=== PATIENT | female | born 1930 | race American Indian/Alaskan Native ===

== ENCOUNTER 2017-03-25 11:24 | Inpatient (IN) | payer MEDICARE, OTHER ==
[2017-03-25 11:37] VITALS: BMI 23.2
[2017-03-25] MEDS ORDERED: Sodium Chloride 0.9% 500 ML IV STA (12:26)
--- NOTE | 2017-03-25 12:43 | C.PDOC ---
History Of Present Illness 86 y/o female presents to the ED with complains of pain to right rib and left hip area. Pt normally walks with a walker, states she went to the bathroom sometime last night and left the walker outside the bathroom door. She fell in the bathroom and couldn't get up; patient does not remember how she fell. Pt then crawled to her front door and called out for her neighbor who got home and found the patient around 2130, helped patient to her bed. Pt woke up this morning with pain to right rib and left hip. Denies chest pain, SOB, vomiting, headache, neck pain, back pain or any other complaints. Neighbor and daughter at bedside. - HPI Time Seen by Provider: 03/25/17 11:46 Chief Complaint (Nursing): Rib Injury History Per: Patient History/Exam Limitations: no limitations Onset/Duration Of Symptoms: Hrs Severity: Moderate Recent travel outside of the [place]: No Past Medical History Reviewed: Historical Data, Nursing Documentation, Vital Signs Vital Signs: Last Vital Signs Temp 97.5 F L 03/25/17 11:37 Pulse 80 03/25/17 11:37 Resp 18 03/25/17 11:37 BP 166/87 H 03/25/17 11:37 Pulse Ox 97 03/25/17 16:48 - Medical History PMH: Dementia, HTN, Hypercholesterolemia, Hyperlipidemia Surgical History: Appendectomy, Tonsillectomy Family History: States: Unknown Family Hx - Social History Hx Alcohol Use: No Hx Substance Use: No - Immunization History Hx Tetanus Toxoid Vaccination: No Hx Influenza Vaccination: No Hx Pneumococcal Vaccination: No Review Of Systems Except As Marked, All Systems Reviewed And Found Negative. Cardiovascular: Negative for: Chest Pain Respiratory: Negative for: Shortness of Breath Gastrointestinal: Negative for: Vomiting Musculoskeletal: Positive for: Other (right rib pain, left hip pain). Negative for: Neck Pain, Back Pain Neurological: Negative for: Headache Physical Exam - Physical Exam Appears: Non-toxic, No Acute Distress Skin: Warm, Dry, No Rash Head: Atraumatic, Normacephalic Eye(s): bilateral: PERRL, EOMI Nose: Normal Neck: Normal, Normal ROM, No Midline Cervical Tenderness, Supple Chest: Symmetrical, Tenderness (diffuse right rib tenderness) Cardiovascular: Rhythm Regular, No Murmur Respiratory: Normal Breath Sounds, No Rales, No Rhonchi, No Wheezing Gastrointestinal/Abdominal: Normal Exam, Soft, No Tenderness Back: Normal Inspection, No Vertebral Tenderness Extremity: Normal ROM, Tenderness (left hip), Capillary Refill (<2 seconds), No Deformity Extremity: Bilateral: Atraumatic Neurological/Psych: Oriented x3, Normal Speech, Normal Motor, Normal Sensation ED Course And Treatment - Laboratory Results Result Diagrams: 03/25/17 15:28 03/25/17 15:28 O2 Sat by Pulse Oximetry: 97 (room air) Pulse Ox Interpretation: Normal - CT Scan/US CT head Other Rad Studies (CT/US): Read By Radiologist, Radiology Report Reviewed CT/US Interpretation: Accession No. : [id number]. Patient Name / ID : DENNY BELL / [id number]. Exam Date : 03/25/2017 13:49:36 ( Approved ). Study Comment : Sex / Age : F / 86Y. Creator : Jason Gaxiola MD. Dictator : Jason Gaxiola MD. Station Usher : Spectrograph Operator : Jason Gaxiola MD. Approver2 : Report Date : 03/25/2017 15:01:10. My Comment : . PROCEDURE: CT HEAD WITHOUT CONTRAST. HISTORY: fall. COMPARISON: None available. TECHNIQUE: Axial computed tomography images were obtained through the head/brain without intravenous contrast. Radiation dose: Total exam DLP = 667 mGy-cm. This CT exam was performed using one or more of the following dose reduction techniques: Automated exposure control, adjustment of the mA and/or kV according to patient size, and/or use of iterative reconstruction technique. FINDINGS: HEMORRHAGE: No intracranial hemorrhage. BRAIN: No mass effect or edema. Chronic microvascular ischemic changes. VENTRICLES: Unremarkable. No hydrocephalus. CALVARIUM: Unremarkable. PARANASAL SINUSES: Unremarkable as visualized. No significant inflammatory changes. MASTOID AIR CELLS: Unremarkable as visualized. No inflammatory changes. OTHER FINDINGS: None. IMPRESSION: No acute hemorrhage. CT chest Other Rad Studies (CT/US): Read By Radiologist, Radiology Report Reviewed CT/US Interpretation: Accession No. : [id number]. Patient Name / ID : DENNY BELL / [id number]. Exam Date : 03/25/2017 13:56:45 ( Approved ). Study Comment : Sex / Age : F / 86Y. Creator : Jason Gaxiola MD. Dictator : Jason Gaxiola MD. Station Usher : Spectrograph Operator : Jason Gaxiola MD. Approver2 : Report Date : 03/25/2017 15:14:07. My Comment : . PROCEDURE: CT Chest without contrast. HISTORY: fall, right ribs pain. COMPARISON: None. TECHNIQUE: Contiguous axial images were obtained through the chest without intravenous contrast enhancement. Sagittal and coronal reconstructions were performed. . Radiation dose (DLP): 402 mGy-cm. This CT exam was performed using one or more of the following dose reduction techniques : Automated exposure control, adjustment of the mA and/or kV according to patient size, and/or use of iterative reconstruction technique. FINDINGS: LUNGS: Clear lungs. Visualized airway clear. MEDIASTINUM: Unremarkable thoracic aorta. No aneurysm. Normal sized heart. Main pulmonary artery unremarkable. No vascular congestion. No lymphadenopathy. PLEURA: No pleural fluid. No pneumothorax. BONES: No fracture. No destructive lesion. UPPER ABDOMEN: Grossly unremarkable. OTHER FINDINGS: Enlarged bilateral axillary lymph nodes; correlate clinically. IMPRESSION: Bilateral axillary lymphadenopathy; correlate clinically. No evidence of rib fracture. Progress Note: Patient was tx with Morphine IV with some improvement. patient is still unable to ambulate secondary to the pain. Patient lives alone, no home care. Daughter has disability and can't physically help. Patient will be observed in [place], she will need social science research assistant to help her with home care. Case was d/w who admits for pt's PMD . Patient was accepted for observation. Medical Decision Making Medical Decision Making: Plan: CT chest/head, labs, UA, morphine, IV Fluids Disposition - Disposition Disposition: HOSPITALIZED Disposition Time: 16:47 Condition: FAIR - Clinical Impression Clinical Impression: Unsteady gait, Fall, Multiple contusions - PA / [employer] INTEGRATION ENGINEER / Resident Statement MD/DO has reviewed & agrees with the documentation as recorded. - Scribe Statement The provider has reviewed the documentation as recorded by the Sejalibjanet Stevens All medical record entries made by the Micheal were at my direction and personally dictated by me. I have reviewed the chart and agree that the record accurately reflects my personal performance of the history, physical exam, medical decision making, and the department course for this patient. I have also personally directed, reviewed, and agree with the discharge instructions and disposition.
[2017-03-25] MEDS ORDERED: Sodium Chloride 0.9% 500 ML IV ONE (13:35)
--- NOTE | 2017-03-25 15:03 | CT ---
PROCEDURE: CT HEAD WITHOUT CONTRAST. HISTORY: fall COMPARISON: None available. TECHNIQUE: Axial computed tomography images were obtained through the head/brain without intravenous contrast. Radiation dose: Total exam DLP = 667 mGy-cm. This CT exam was performed using one or more of the following dose reduction techniques: Automated exposure control, adjustment of the mA and/or kV according to patient size, and/or use of iterative reconstruction technique. FINDINGS: HEMORRHAGE: No intracranial hemorrhage. BRAIN: No mass effect or edema. Chronic microvascular ischemic changes. VENTRICLES: Unremarkable. No hydrocephalus. CALVARIUM: Unremarkable. PARANASAL SINUSES: Unremarkable as visualized. No significant inflammatory changes. MASTOID AIR CELLS: Unremarkable as visualized. No inflammatory changes. OTHER FINDINGS: None. IMPRESSION: No acute hemorrhage.
--- NOTE | 2017-03-25 15:15 | CT ---
PROCEDURE: CT Chest without contrast HISTORY: fall, right ribs pain COMPARISON: None. TECHNIQUE: Contiguous axial images were obtained through the chest without intravenous contrast enhancement. Sagittal and coronal reconstructions were performed. Radiation dose (DLP): 402 mGy-cm. This CT exam was performed using one or more of the following dose reduction techniques: Automated exposure control, adjustment of the mA and/or kV according to patient size, and/or use of iterative reconstruction technique. FINDINGS: LUNGS: Clear lungs. Visualized airway clear. MEDIASTINUM: Unremarkable thoracic aorta. No aneurysm. Normal sized heart. Main pulmonary artery unremarkable. No vascular congestion. No lymphadenopathy. PLEURA: No pleural fluid. No pneumothorax. BONES: No fracture. No destructive lesion. UPPER ABDOMEN: Grossly unremarkable. OTHER FINDINGS: Enlarged bilateral axillary lymph nodes; correlate clinically. IMPRESSION: Bilateral axillary lymphadenopathy; correlate clinically. No evidence of rib fracture.
[2017-03-25 15:32] LABS: BASO % 0.2 % (0.0-2.0); EOS # 0.1 K/uL (0.0-0.7); EOS % 0.5 % (0.0-4.0); HEMATOCRIT 34.8 % (34.0-47.0); LYMPH # 1.3 K/uL (1.0-4.3); MEAN CELL VOLUME 93.7 fL (81.0-99.0); MEAN CORPUSCULAR HEMOGLOBIN 30.7 pg (27.0-31.0); MEAN CORPUSCULAR HGB CONC 32.8 g/dL (33.0-37.0); MEAN PLATELET VOLUME 7.8 fL (7.2-11.7); MONO # 0.7 K/uL (0.0-0.8); MONO % 6.9 % (0.0-10.0); RED CELL DISTRIBUTION WIDTH 12.6 % (11.5-14.5); WHITE BLOOD COUNT 9.6 K/uL (4.8-10.8)
[2017-03-25 15:40] LABS: CHLORIDE 101 mmol/L (98-107); POTASSIUM 3.8 mmol/L (3.6-5.2); SODIUM 135 mmol/L (132-148)
[2017-03-25 15:42] LABS: AST/SGOT 27 U/L (14-36); BILIRUBIN,TOTAL 0.6 mg/dL (0.2-1.3); CARBON DIOXIDE 26 mmol/L (22-30); GFR AFRICAN-AMERICAN > 60; TOTAL PROTEIN 7.7 g/dL (6.3-8.3)
[2017-03-25 15:43] LABS: ALKALINE PHOSPHATASE 100 U/L (38-126); ALT/SGPT 31 U/L (9-52); BLOOD UREA NITROGEN 15 mg/dL (7-17); CALCIUM 8.9 mg/dl (8.6-10.4); GLUCOSE,RANDOM 132 mg/dL (65-105)
[2017-03-25] MEDS: Rosuvastatin Calcium 2.5 mg Tab PO SCH (21:25)
[2017-03-25] MEDS: Enoxaparin 40 mg Syringe SC SCH (21:25)
[2017-03-25] MEDS: (Novolog) Insulin Aspart, Recombinant 100 u/ml 10 ml vial SC SCH (22:10)
--- NOTE | 2017-03-26 07:22 | CP.PCM.PN ---
Subjective - Date & Time of Evaluation Date of Evaluation: 03/26/17 Time of Evaluation: 10:00 - Subjective Subjective: PGY2 on medicine Dr. Johnson service: Pt seen and examined at bedside this morning. Pt reports sharp pain under her right breast. Pt reports no pain around her hip and her legs, and was able to move them. No other complaints at this time. Objective - Vital Signs/Intake and Output Vital Signs (last 24 hours): Temp Pulse Resp BP Pulse Ox 97.9 F 81 18 144/74 99 03/26/17 00:00 03/26/17 00:00 03/26/17 00:00 03/26/17 00:00 03/26/17 00:00 - Medications Medications: Current Medications Acetaminophen (Tylenol 325mg Tab) 650 mg PO Q6 PRN PRN Reason: Fever >100.4 F Aspirin (Aspirin Chewable) 81 mg PO DAILY [facility] Enoxaparin Sodium (Lovenox) 40 mg SC DAILY [facility] Last Admin: 03/25/17 21:25 Dose: 40 mg Ergocalciferol (Calcidol) 50 iu PO QWK [facility] Insulin Aspart (Novolog) 0 unit SC QID [facility] PRN Reason: Protocol Last Admin: 03/25/17 22:10 Dose: Not Given Metoprolol Tartrate (Lopressor) 25 mg PO BID [facility] Oxycodone/Acetaminophen (Percocet 5/325 Mg Tab) 2 tab PO Q6H PRN PRN Reason: Pain, Mild (1-3) Stop: 03/28/17 20:20 Pneumococcal Polyvalent Vaccine (Pneumovax 23 Vaccine) 0.5 ml IM .ONCE ONE Stop: 03/27/17 10:01 Rosuvastatin Calcium (Crestor) 2.5 mg PO [facility] Last Admin: 03/25/17 21:25 Dose: 2.5 mg - Labs Labs: PT 10.8 SECONDS (9.7-12.2) 03/25/17 15:28 INR 1.0 03/25/17 15:28 APTT 30 SECONDS (21-34) 03/25/17 15:28 - Constitutional Appears: Non-toxic, No Acute Distress - Head Exam Head Exam: NORMAL INSPECTION, NORMOCEPHALIC - Eye Exam Eye Exam: Normal appearance Pupil Exam: NORMAL ACCOMODATION - Respiratory Exam Respiratory Exam: Clear to Ausculation Bilateral, NORMAL BREATHING PATTERN. absent: Rhonchi, Wheezes - Cardiovascular Exam Cardiovascular Exam: REGULAR RHYTHM, +S1, +S2. absent: Rubs - GI/Abdominal Exam GI & Abdominal Exam: Soft, Normal Bowel Sounds - Extremities Exam Additional comments: right axillary tenderness on palpation - Neurological Exam Neurological Exam: Alert, Awake, Oriented x3 - Psychiatric Exam Psychiatric exam: Normal Affect, Normal Mood - Skin Skin Exam: Dry, Intact Assessment and Plan - Assessment and Plan (Free Text) Assessment: Fall Pt has history of postprandial syncope and was admitted 12/2016. Pt found to have anterior and posterior pubic rami fracture then. CT head negative per report. CT chest negative for rib fractures per report Hip xray showed possible subcapital fracture, as well as callus formation on multiple superior/inferior pelvic ring fractures per report. F/U pelvis CT as per suggestion. Ortho Dr. Mott consulted. Neuro Dr. Hernandez consulted. Percocet PRN. Prophylactic measure Lovenox, Protonix.
[2017-03-26] MEDS ORDERED: Ergocalciferol 50,000 Intl Units Cap PO SCH (10:00)
--- NOTE | 2017-03-26 10:19 | CARD ---
APPROVED REPORT EKG Measurement Heart [id number] <Conclusion> Normal sinus rhythm Possible Anterolateral infarct, age undetermined Abnormal ECG
[2017-03-26] MEDS: (Novolog) Insulin Aspart, Recombinant 100 u/ml 10 ml vial SC SCH ×4 (11:00→22:25)
--- NOTE | 2017-03-26 12:14 | RAD ---
PROCEDURE: HISTORY: fall COMPARISON: No CT pelvis without contrast 12/20/2016 TECHNIQUE: FINDINGS: The CT previously referenced " mildly displaced fracture at the right anterior pubic ramus adjacent to the pubic symphysis. There are nondisplaced fracture at both posterior pubic rami " are more conspicuous in appearance on this exam given the callus formation about all 4 fractured sites. The possibility of bilateral subcapital additional fractures are not excluded. Consider another CT of the pelvis-both hips for further evaluation. Excluding area of callus formation, generalized osteopenia is noted impeding further evaluation of fractures. No dislocation appreciated IMPRESSION: As noted in reported on the prior CT from 12/20/2016 are multiple superior and inferior pelvic ring fractures which are more conspicuous on this exam given the callus formation now present. Given the osteopenia and the current appearance, the possibility of additional more acute subtle subcapital fractures are not excluded. Consider CT of the hips/ pelvis to reassess this area. Comments: The study is presented to me at this time 03/26/2017. Called to the ER was made. The findings were discussed with Dr. Landy Valenzuela at 11:53 a.m. on 03/26/2017 The concerns for possible additional proximal femur fractures given the osteopenia was also called up to 5 tower and given to the nurse, Ana, taking care the patient on 03/26/2017 at 12:11 p.m.
[2017-03-26] MEDS: Enoxaparin 40 mg Syringe SC SCH (12:39)
[2017-03-26] MEDS: Oxycodone/Acetaminophen 5/325 mg Tab PO PRN ×2 (12:40→18:31)
--- NOTE | 2017-03-26 15:55 | CP.PCM.HP ---
History of Present Illness - History of Present Illness History of Present Illness: 86 years old female patient with past medical history of hypertension hyperlipidemia, dementia presented to the emergency department with complaint of pain over left hip and right rib. Patient walks with walker and yesterday night patient went to the bathroom, and she fell in the bathroom and could not get up. Patient then crawled to the daughter and called her neighbor who helped patient to get out of the bed. Patient woke up with pain in the morning. No chest pain, no fever nausea vomiting, No any neck pain, back pain, shortness of breath Present on Admission - Present on Admission Any Indicators Present on Admission: No Past Patient History - Infectious Disease Hx of Infectious Diseases: None - Past Medical History & Family History Past Medical History?: Yes - Past Social History Smoking Status: Never Smoked - CARDIAC Hx Hypercholesterolemia: Yes Hx Hypertension: Yes - PULMONARY Hx Respiratory Disorders: No - NEUROLOGICAL Hx Dementia: Yes - HEENT Hx HEENT Problems: Yes Hx Cataracts: Yes Hx Difficulty Chewing: Yes (Upper and lower dentures) - RENAL Hx Chronic Kidney Disease: No - ENDOCRINE/METABOLIC Hx Endocrine Disorders: Yes Hx Diabetes Mellitus Type 2: Yes - HEMATOLOGICAL/ONCOLOGICAL Hx Blood Disorders: No - INTEGUMENTARY Hx Dermatological Problems: Yes Hx Psoriasis: Yes - MUSCULOSKELETAL/RHEUMATOLOGICAL Hx Falls: Yes - GASTROINTESTINAL Hx Gastrointestinal Disorders: No - GENITOURINARY/GYNECOLOGICAL Hx Genitourinary Disorders: No - PSYCHIATRIC Hx Substance Use: No - SURGICAL HISTORY Hx Appendectomy: Yes Hx Tonsillectomy: Yes - ANESTHESIA Hx Anesthesia: Yes Hx Anesthesia Reactions: No Hx Malignant Hyperthermia: No Has any member of the family had a problem w/ anesthesia?: No Meds Home Medications: Home Medication List Medication Instructions Recorded Confirmed Type Acetaminophen [Tylenol 325mg tab] 650 mg PO Q6 PRN tab 03/29/17 Rx Aspirin [Aspirin Chewable] 81 mg PO DAILY 03/29/17 Rx Enoxaparin [Lovenox] 40 mg SC DAILY syr 03/29/17 Rx Ergocalciferol [Drisdol 50,000 1 cap PO QWK cap 03/29/17 Rx Intl Units Cap] Insulin Aspart, Recombinant 0 unit SC QID unit 03/29/17 Rx [Novolog] Metoprolol Tartrate [Lopressor] 25 mg PO BID tab 03/29/17 Rx Pantoprazole [Protonix EC Tab] 40 mg PO DAILY ect 03/29/17 Rx Rosuvastatin Calcium 2.5 [Crestor] 2.5 mg PO HS tab 03/29/17 Rx Allergies/Adverse Reactions: Allergies Allergy/AdvReac Type Severity Reaction Status Date / Time quinine Allergy Mild RASH Verified 03/25/17 11:36 aspirin Allergy stomach Verified 03/25/17 11:36 ache EGG Allergy NAUSEA Verified 03/25/17 11:36 Sulfa (Sulfonamide Allergy ringing of Verified 03/25/17 11:36 Antibiotics) the ear beesting Allergy Mild SWELLING Uncoded 12/01/16 00:46 Physical Exam - Constitutional Appears: Well - Head Exam Head Exam: ATRAUMATIC, NORMAL INSPECTION, NORMOCEPHALIC - Eye Exam Eye Exam: EOMI, Normal appearance, PERRL Pupil Exam: NORMAL ACCOMODATION, PERRL - ENT Exam ENT Exam: Mucous Membranes Moist, Normal Exam - Neck Exam Neck exam: Positive for: Normal Inspection - Respiratory Exam Respiratory Exam: Decreased Breath Sounds - Cardiovascular Exam Cardiovascular Exam: REGULAR RHYTHM, +S1, +S2 - GI/Abdominal Exam GI & Abdominal Exam: Diminished Bowel Sounds, Soft Results - Vital Signs Recent Vital Signs: Last Vital Signs Temp 97.7 F 03/26/17 07:10 Pulse 65 03/26/17 07:10 Resp 18 03/26/17 07:10 BP 152/80 H 03/26/17 12:39 Pulse Ox 100 03/26/17 07:10 - Labs Result Diagrams: 03/28/17 07:00 03/28/17 07:00 Labs: Laboratory Results - last 24 hr 03/25/17 03/26/17 03/26/17 21:12 06:46 12:07 POC Glucose (mg/dL) 252 H 117 H 173 H Assessment & Plan (1) Contusion Status: Acute (2) Contusion of right elbow Status: Acute (3) Dehydration Status: Acute (4) Fall Status: Acute (5) Fracture of rib of right side Status: Acute (6) Frequent falls Status: Acute (7) Hyperkalemia Status: Acute (8) Multiple contusions Status: Acute (9) Near syncope Status: Acute (10) Syncope and collapse Status: Acute (11) UTI (urinary tract infection) Status: Acute (12) UTI (urinary tract infection), bacterial Status: Acute (13) Unsteady gait Status: Acute (14) Bilateral pubic rami fractures Status: Chronic (15) Sepsis Status: Suspected - Assessment and Plan (Free Text) Plan: CT head negative Chest negative for rib fracture Ortho consult Neuro consult Pain meds Lovenox
--- NOTE | 2017-03-26 18:20 | CON ---
DATE: 03/26/2017 HISTORY OF PRESENT ILLNESS: This is an 86-year-old black female with a past medical history of demen tia came to the hospital with pain in the right rib and left hip area. The patient went to bathroom and she fell in the bathroom. She left the walker outside the bathroom and does not remember why she fell. Then neighbor called and brought her to Emergency Room and a daughter is sitting bedside. PAST MEDICAL HISTORY: Dementia, hypertension, high cholesterol. VITAL SIGNS: Blood pressure 166/87. SOCIAL HISTORY: Does not smoke, does not drink. ALLERGIES: SULFA. REVIEW OF SYSTEMS: A 10-point review of system was negative except a fall. PHYSICAL EXAMINATION: HEENT: Normocephalic, atraumatic. NECK: Supple. NEUROLOGIC: Awake, alert, oriented to self and place, intermittently confused, thinks she is at home for a minute and then knows she is in hospital. No facial asymmetry. Tongue midline. Motor examin ation: Spontaneous movement of the extremities noted, more upper than the lower. A lot of arthritis . Cerebellar and gait deferred. IMPRESSION: Syncope and fall secondary to above, possibly rule out seizure, though less likely. LABORATORY DATA: WBC is 9.6, hemoglobin 11.4, hematocrit 34.8, platelets 406. Sodium 135, potassium 3.8, chloride 101, CO2 26, glucose 132, BUN 15, creatinine 0.5. CAT scan of the head was negative. PLAN: Continue present management and we will order physical therapy for gait training. Rubin Hernandez MD cc: [id number] TT: 03/26/2017 18:20:01 Confirmation # [id number] Dictation # [id number]
[2017-03-26] MEDS: Rosuvastatin Calcium 2.5 mg Tab PO SCH (22:33)
--- NOTE | 2017-03-27 08:11 | CP.PCM.CON ---
History of Present Illness - History of Present Illness History of Present Illness: orthopedic consulation requested DR. Ma for left hip pain 86F complains of right sided rib pain after fall at home from wheelchair. Patient at this time denies any hip pain/groin pain/back pain/leg or arm pain. Denies CP/SOB/dizziness/n/v/numbness/tingling. Patient known to me, was admitted with rami fx 12/2016 from fall. Review of Systems - Review of Systems All systems: reviewed and no additional remarkable complaints except - Constitutional Constitutional: Frequent Falls - Cardiovascular Cardiovascular: As Per HPI - Respiratory Respiratory: As Per HPI - Gastrointestinal Gastrointestinal: As Per HPI - Musculoskeletal Musculoskeletal: As Per HPI - Neurological Neurological: As Per HPI - Hematologic/Lymphatic Hematologic: absent: As Per HPI, Easy Bleeding, Easy Bruising, Lymphadenopathy, Other Past Patient History - Infectious Disease Hx of Infectious Diseases: None - Past Medical History & Family History Past Medical History?: Yes Past Family History: Reviewed and not pertinent - Past Social History Smoking Status: Never Smoked - CARDIAC Hx Hypercholesterolemia: Yes Hx Hypertension: Yes - PULMONARY Hx Respiratory Disorders: No - NEUROLOGICAL Hx Dementia: Yes - HEENT Hx HEENT Problems: Yes Hx Cataracts: Yes Hx Difficulty Chewing: Yes (Upper and lower dentures) - RENAL Hx Chronic Kidney Disease: No - ENDOCRINE/METABOLIC Hx Endocrine Disorders: Yes Hx Diabetes Mellitus Type 2: Yes - HEMATOLOGICAL/ONCOLOGICAL Hx Blood Disorders: No - INTEGUMENTARY Hx Dermatological Problems: Yes Hx Psoriasis: Yes - MUSCULOSKELETAL/RHEUMATOLOGICAL Hx Falls: Yes - GASTROINTESTINAL Hx Gastrointestinal Disorders: No - GENITOURINARY/GYNECOLOGICAL Hx Genitourinary Disorders: No - PSYCHIATRIC Hx Substance Use: No - SURGICAL HISTORY Hx Appendectomy: Yes Hx Tonsillectomy: Yes - ANESTHESIA Hx Anesthesia: Yes Hx Anesthesia Reactions: No Hx Malignant Hyperthermia: No Has any member of the family had a problem w/ anesthesia?: No Meds Allergies/Adverse Reactions: Allergies Allergy/AdvReac Type Severity Reaction Status Date / Time quinine Allergy Mild RASH Verified 03/25/17 11:36 aspirin Allergy stomach Verified 03/25/17 11:36 ache EGG Allergy NAUSEA Verified 03/25/17 11:36 Sulfa (Sulfonamide Allergy ringing of Verified 03/25/17 11:36 Antibiotics) the ear beesting Allergy Mild SWELLING Uncoded 12/01/16 00:46 - Medications Medications: Current Medications Acetaminophen (Tylenol 325mg Tab) 650 mg PO Q6 PRN PRN Reason: Fever >100.4 F Aspirin (Aspirin Chewable) 81 mg PO DAILY [facility] Last Admin: 03/26/17 12:39 Dose: 81 mg Enoxaparin Sodium (Lovenox) 40 mg SC DAILY [facility] Last Admin: 03/26/17 12:39 Dose: 40 mg Ergocalciferol (Drisdol 50,000 Intl Units Cap) 1 cap PO QWK [facility] Last Admin: 03/26/17 12:39 Dose: 1 cap Insulin Aspart (Novolog) 0 unit SC QID [facility] PRN Reason: Protocol Last Admin: 03/26/17 22:25 Dose: Not Given Metoprolol Tartrate (Lopressor) 25 mg PO BID [facility] Last Admin: 03/26/17 18:31 Dose: 25 mg Oxycodone/Acetaminophen (Percocet 5/325 Mg Tab) 2 tab PO Q6H PRN PRN Reason: Pain, Mild (1-3) Stop: 03/28/17 20:20 Last Admin: 03/26/17 18:31 Dose: 2 tab Pantoprazole Sodium (Protonix Ec Tab) 40 mg PO DAILY [facility] Pneumococcal Polyvalent Vaccine (Pneumovax 23 Vaccine) 0.5 ml IM .ONCE ONE Stop: 03/27/17 10:01 Rosuvastatin Calcium (Crestor) 2.5 mg PO HS [facility] Last Admin: 03/26/17 22:33 Dose: 2.5 mg Physical Exam - Constitutional Appears: No Acute Distress - Extremities Exam Additional comments: BLE: full AROM and PROM of hips/knees/ankles without pain. No pain with hip loading or log roll. No groin tenderness, no pain to pelvis compression. No swelling/deformity discoloration. +DP pulses, calves sfot NT neg homans. Non tender to BLE, skin intact BUE: no swelling/deformity/discoloration. Full ROM, sensation intact, +radial pulses - Expanded Lower Extremities Exam Left Hip exam: full ROM Knee exam: full ROM Neuro vacular tendon exam: no vascular compromise - Neurological Exam Neurological exam: Alert Additional comments: not oriented to time or place - Psychiatric Exam Psychiatric exam: Normal Affect, Normal Mood - Skin Skin Exam: Dry, Intact, Normal Color, Warm Results - Vital Signs Recent Vital Signs: Last Vital Signs Temp 97.9 F 03/27/17 00:00 Pulse 72 03/27/17 00:00 Resp 20 03/27/17 00:00 BP 131/63 03/27/17 00:00 Pulse Ox 97 03/27/17 00:00 - Labs Result Diagrams: 03/27/17 08:26 03/27/17 08:26 Labs: Laboratory Results - last 24 hr 03/26/17 03/26/17 03/26/17 12:07 16:51 21:34 POC Glucose (mg/dL) 173 H 230 H 143 H Assessment & Plan (1) Fracture of rib of right side Assessment and Plan: CT scan reviewed of chest Acute right 9th rib fracture -multiple old healed left sided rib fractures noted as well -no pneumothorax noted on CT radiology report -encourage IS -any complications outside scope of orthopedics, consider thoracic consult prn Status: Acute (2) Bilateral pubic rami fractures Assessment and Plan: CT scan pelvis and xrays reviewed -report reviewed -patient has old chronic bilateral sup/inf rami fractures that all show extensive callus formation, no acute pelvis or hip fractures appreciated -patient clinically with no hip or groin pain during exam -PT/OT -VTE proph -no orthopedic intervention indicated -FWB BLE -d/c planning to rehab, patient lives alone Status: Chronic (3) Frequent falls Assessment and Plan: PT/OT placement Status: Acute Radiology Interpretation - Radiology Interpretation #2 Interpretation: Patient Name / ID : DENNY BELL / [id number] Exam Date : 03/26/2017 18:15:59 ( Approved ) Study Comment : Sex / Age : F / 86Y Creator : shanell weeks Dictator : Jeanie Quiles Ointment Mill Tender : Banking Supervisor : Jeanie Quiles Approver2 : Report Date : 03/26/2017 18:20:29 My Comment : PROCEDURE: CT Pelvis without contrast HISTORY: hx falls, pain COMPARISON: Comparison is made to the previous study dated 12/20/2016 TECHNIQUE: Contiguous axial images of the pelvis . No intravenous or oral contrast given. Coronal and sagittal reformats generated. Radiation dose: Total exam DLP = 262.23 mGy-cm. This CT exam was performed using one or more of the following dose reduction techniques: Automated exposure control, adjustment of the mA and/or kV according to patient size, and/or use of iterative reconstruction technique. FINDINGS: BLADDER: Mildly distended urinary bladder. REPRODUCTIVE ORGANS: No evidence of acute pathology VISUALIZED BOWEL: Mildly dilated small bowel loops. Mild constipation. PERITONEUM: Unremarkable, as visualized. No free fluid. No free air. LYMPH NODES: Unremarkable. No enlarged lymph nodes. BONES: There is comminuted fracture at the anterior aspect of the right superior pubic ramus surrounding with callus formation. There is also chronic fracture at the medial aspect of the left acetabulum. Colonic fractures with callus formation are also noted at both posterior pubic from i.e.. Left sacral insufficiency fracture with sclerotic changes is also noted. Diffuse moderate osteopenia is again noted. The assessment for small fracture is limited due to moderate to severe osteopenia. VASCULATURE: Unremarkable. OTHER FINDINGS: None. IMPRESSION: Moderate to severe osteopenia. Multiple chronic fractures surrounding with large callus formation seen at the pubic bones bilaterally. Left sacral insufficiency fracture with sclerosis also noted. Moderate to severe osteopenia which limits the evaluation for possible small acute fracture. If clinically warranted and if not contraindicated further assessment by MRI may be obtained. Preliminary report was submitted by virtual Radiology. - Radiology Interpretation #3 Interpretation: atient Name / ID : DENNY BELL / [id number] Exam Date : 03/25/2017 12:50:12 ( Approved ) Study Comment : Sex / Age : F / 86Y Creator : Lor Delgado V. Dictator : Lor Delgado V. Ointment Mill Tender : Banking Supervisor : Lor Delgado V. Approver2 : Report Date : 03/26/2017 12:12:57 My Comment : PROCEDURE: HISTORY: fall COMPARISON: No CT pelvis without contrast 12/20/2016 TECHNIQUE: FINDINGS: The CT previously referenced " mildly displaced fracture at the right anterior pubic ramus adjacent to the pubic symphysis. There are nondisplaced fracture at both posterior pubic rami " are more conspicuous in appearance on this exam given the callus formation about all 4 fractured sites. The possibility of bilateral subcapital additional fractures are not excluded. Consider another CT of the pelvis-both hips for further evaluation. Excluding area of callus formation, generalized osteopenia is noted impeding further evaluation of fractures. No dislocation appreciated IMPRESSION: As noted in reported on the prior CT from 12/20/2016 are multiple superior and inferior pelvic ring fractures which are more conspicuous on this exam given the callus formation now present. Given the osteopenia and the current appearance, the possibility of additional more acute subtle subcapital fractures are not excluded. Consider CT of the hips / pelvis to reassess this area. Comments: The study is presented to me at this time 03/26/2017. Called to the ER was made. The findings were discussed with Dr. Landy Valenzuela at 11:53 a.m. on The concerns for possible additional proximal femur fractures given the osteopenia was also called up to 5 tower and given to the nurse, Ana, taking care the patient on 03/26/2017 at 12:11 p.m.
[2017-03-27 08:39] LABS: BASO % 0.4 % (0.0-2.0); EOS # 0.1 K/uL (0.0-0.7); EOS % 1.4 % (0.0-4.0); HEMATOCRIT 33.9 % (34.0-47.0); LYMPH # 1.4 K/uL (1.0-4.3); LYMPH % 15.8 % (20.0-40.0); MEAN CELL VOLUME 94.5 fL (81.0-99.0); MEAN CORPUSCULAR HEMOGLOBIN 31.2 pg (27.0-31.0); MEAN PLATELET VOLUME 9.6 fL (7.2-11.7); MONO # 0.7 K/uL (0.0-0.8); MONO % 7.4 % (0.0-10.0); RED CELL DISTRIBUTION WIDTH 12.6 % (11.5-14.5); WHITE BLOOD COUNT 8.9 K/uL (4.8-10.8)
[2017-03-27 08:43] LABS: RBC URINE 1 /hpf (0-3); URINE BACTERIA RARE (<OCC); URINE BILIRUBIN NEGATIVE (NEGATIVE); URINE BLOOD NEGATIVE (NEGATIVE); URINE COLOR Yellow (YELLOW); URINE GLUCOSE (UA) NORMAL (Normal); URINE KETONE NEGATIVE (NEGATIVE); URINE LEUKOCYTE ESTERASE 2+ Leu/uL (Negative); URINE PROTEIN NEGATIVE (NEGATIVE); URINE UROBILINOGEN NORMAL mg/dL (0.2-1.0); WBC URINE 14 /hpf (0-5)
[2017-03-27] MEDS: Enoxaparin 40 mg Syringe SC SCH (09:35)
[2017-03-27] MEDS: Pantoprazole 40 mg EC Tab PO SCH (09:35)
[2017-03-27] MEDS: (Novolog) Insulin Aspart, Recombinant 100 u/ml 10 ml vial SC SCH ×5 (09:36→21:29)
[2017-03-27] MEDS ORDERED: Pneumococcal 23-Valent Vaccine IM ONE (10:00)
[2017-03-27 11:10] LABS: CHLORIDE 100 mmol/L (98-107); POTASSIUM 4.3 mmol/L (3.6-5.2); SODIUM 134 mmol/L (132-148)
[2017-03-27 11:12] LABS: AST/SGOT 86 U/L (14-36); BILIRUBIN,TOTAL 0.7 mg/dL (0.2-1.3); CARBON DIOXIDE 21 mmol/L (22-30); GFR AFRICAN-AMERICAN > 60
[2017-03-27 11:13] LABS: ALB/GLOB RATIO 0.9 (1.0-2.1); ALKALINE PHOSPHATASE 84 U/L (38-126); ALT/SGPT 17 U/L (9-52); BLOOD UREA NITROGEN 25 mg/dL (7-17); CALCIUM 9.2 mg/dl (8.6-10.4); GLUCOSE,RANDOM 112 mg/dL (65-105); TOTAL PROTEIN 7.1 g/dL (6.3-8.3)
--- NOTE | 2017-03-27 11:17 | CP.PCM.PN ---
Subjective - Date & Time of Evaluation Date of Evaluation: 03/27/17 Time of Evaluation: 10:00 - Subjective Subjective: PGY2 on medicine Dr. Johnson service: Pt seen and examined at bedside this morning. Pt said her right sided rib pain under her right breast persisted. Pt otherwise have no other complaints. Pt requested toothbrush and comb. Objective - Vital Signs/Intake and Output Vital Signs (last 24 hours): Temp Pulse Resp BP Pulse Ox 98 F 69 20 148/70 98 03/27/17 07:00 03/27/17 07:00 03/27/17 07:00 03/27/17 09:35 03/27/17 07:00 - Medications Medications: Current Medications Acetaminophen (Tylenol 325mg Tab) 650 mg PO Q6 PRN PRN Reason: Fever >100.4 F Aspirin (Aspirin Chewable) 81 mg PO DAILY [facility] Last Admin: 03/27/17 09:35 Dose: 81 mg Enoxaparin Sodium (Lovenox) 40 mg SC DAILY [facility] Last Admin: 03/27/17 09:35 Dose: 40 mg Ergocalciferol (Drisdol 50,000 Intl Units Cap) 1 cap PO QWK [facility] Last Admin: 03/26/17 12:39 Dose: 1 cap Insulin Aspart (Novolog) 0 unit SC QID [facility] PRN Reason: Protocol Last Admin: 03/27/17 09:39 Dose: Not Given Metoprolol Tartrate (Lopressor) 25 mg PO BID [facility] Last Admin: 03/27/17 09:35 Dose: 25 mg Oxycodone/Acetaminophen (Percocet 5/325 Mg Tab) 2 tab PO Q6H PRN PRN Reason: Pain, Mild (1-3) Stop: 03/28/17 20:20 Last Admin: 03/26/17 18:31 Dose: 2 tab Pantoprazole Sodium (Protonix Ec Tab) 40 mg PO DAILY [facility] Last Admin: 03/27/17 09:35 Dose: 40 mg Rosuvastatin Calcium (Crestor) 2.5 mg PO HS [facility] Last Admin: 03/26/17 22:33 Dose: 2.5 mg - Labs Labs: 03/27/17 08:26 PT 10.8 SECONDS (9.7-12.2) 03/25/17 15:28 INR 1.0 03/25/17 15:28 APTT 30 SECONDS (21-34) 03/25/17 15:28 - Constitutional Appears: Non-toxic, No Acute Distress - Head Exam Head Exam: NORMAL INSPECTION, NORMOCEPHALIC - Eye Exam Eye Exam: Normal appearance Pupil Exam: NORMAL ACCOMODATION - Respiratory Exam Respiratory Exam: Chest Wall Tenderness, Clear to Ausculation Bilateral, NORMAL BREATHING PATTERN. absent: Rales, Rhonchi, Wheezes Additional comments: right sided rib pain - Cardiovascular Exam Cardiovascular Exam: REGULAR RHYTHM, +S1, +S2. absent: Gallop, Rubs - Neurological Exam Neurological Exam: Alert, Awake, Oriented x3 - Psychiatric Exam Psychiatric exam: Normal Mood - Skin Skin Exam: Intact Assessment and Plan - Assessment and Plan (Free Text) Assessment: Fall Pt has history of postprandial syncope and was admitted 12/2016. Pt found to have anterior and posterior pubic rami fracture then. CT head negative for acute etiologies per report. CT chest negative for rib fractures per report Hip xray showed possible subcapital fracture, as well as callus formation on multiple superior/inferior pelvic ring fractures per report. F/U pelvis CT as per suggestion. Ortho Dr. Mott consulted. Neuro Dr. Hernandez consulted. Percocet PRN. Prophylactic measure Lovenox, Protonix, SCD PT/OT Management per Dr. Johnson
--- NOTE | 2017-03-27 12:12 | CP.PCM.PCO ---
Assessment & Plan - Assessment and Plan (Free Text) Assessment: NEURO COMMUNICATION NOTE: THIS IS MECHANICAL FALL SEC TO DECONDITIONED STATE, NOT SEIZURE. SHE HAS HISTORY OF POSTPRANDIAL SYNCOPE. NEEDS PHYSICAL THERAPY AND REHAB. AVOID SUDDEN MVTS. THANKS WILL SIGN OFF. Macarena DALEY MD
--- NOTE | 2017-03-27 12:28 | CT ---
PROCEDURE: CT Pelvis without contrast HISTORY: hx falls, pain COMPARISON: Comparison is made to the previous study dated 12/20/2016 TECHNIQUE: Contiguous axial images of the pelvis . No intravenous or oral contrast given. Coronal and sagittal reformats generated. Radiation dose: Total exam DLP = 262.23 mGy-cm. This CT exam was performed using one or more of the following dose reduction techniques: Automated exposure control, adjustment of the mA and/or kV according to patient size, and/or use of iterative reconstruction technique. FINDINGS: BLADDER: Mildly distended urinary bladder. REPRODUCTIVE ORGANS: No evidence of acute pathology VISUALIZED BOWEL: Mildly dilated small bowel loops. Mild constipation. PERITONEUM: Unremarkable, as visualized. No free fluid. No free air. LYMPH NODES: Unremarkable. No enlarged lymph nodes. BONES: There is comminuted fracture at the anterior aspect of the right superior pubic ramus surrounding with callus formation. There is also chronic fracture at the medial aspect of the left acetabulum. Colonic fractures with callus formation are also noted at both posterior pubic from i.e.. Left sacral insufficiency fracture with sclerotic changes is also noted. Diffuse moderate osteopenia is again noted. The assessment for small fracture is limited due to moderate to severe osteopenia. VASCULATURE: Unremarkable. OTHER FINDINGS: None. IMPRESSION: Moderate to severe osteopenia. Multiple chronic fractures surrounding with large callus formation seen at the pubic bones bilaterally. Left sacral insufficiency fracture with sclerosis also noted. Moderate to severe osteopenia which limits the evaluation for possible small acute fracture. If clinically warranted and if not contraindicated further assessment by MRI may be obtained. Preliminary report was submitted by virtual Radiology.
--- NOTE | 2017-03-27 18:08 | CP.PCM.PN ---
Subjective - Date & Time of Evaluation Date of Evaluation: 03/27/17 Time of Evaluation: 12:00 - Subjective Subjective: clinically same Objective - Vital Signs/Intake and Output Vital Signs (last 24 hours): Temp Pulse Resp BP Pulse Ox 97.7 F 67 19 155/77 H 99 03/27/17 15:00 03/27/17 15:00 03/27/17 15:00 03/27/17 15:00 03/27/17 15:00 Intake and Output: 03/27/17 03/27/17 06:59 18:59 Intake Total 360 Balance 360 - Medications Medications: Current Medications Acetaminophen (Tylenol 325mg Tab) 650 mg PO Q6 PRN PRN Reason: Fever >100.4 F Aspirin (Aspirin Chewable) 81 mg PO DAILY [facility] Last Admin: 03/27/17 09:35 Dose: 81 mg Enoxaparin Sodium (Lovenox) 40 mg SC DAILY [facility] Last Admin: 03/27/17 09:35 Dose: 40 mg Ergocalciferol (Drisdol 50,000 Intl Units Cap) 1 cap PO QWK [facility] Last Admin: 03/26/17 12:39 Dose: 1 cap Insulin Aspart (Novolog) 0 unit SC QID [facility] PRN Reason: Protocol Last Admin: 03/27/17 13:04 Dose: Not Given Metoprolol Tartrate (Lopressor) 25 mg PO BID [facility] Last Admin: 03/27/17 09:35 Dose: 25 mg Oxycodone/Acetaminophen (Percocet 5/325 Mg Tab) 2 tab PO Q6H PRN PRN Reason: Pain, Mild (1-3) Stop: 03/28/17 20:20 Last Admin: 03/26/17 18:31 Dose: 2 tab Pantoprazole Sodium (Protonix Ec Tab) 40 mg PO DAILY [facility] Last Admin: 03/27/17 09:35 Dose: 40 mg Rosuvastatin Calcium (Crestor) 2.5 mg PO HS [facility] Last Admin: 03/26/17 22:33 Dose: 2.5 mg - Labs Labs: 03/27/17 08:26 03/27/17 08:26 PT 10.8 SECONDS (9.7-12.2) 03/25/17 15:28 INR 1.0 03/25/17 15:28 APTT 30 SECONDS (21-34) 03/25/17 15:28 - Constitutional Appears: Well - Head Exam Head Exam: ATRAUMATIC, NORMAL INSPECTION, NORMOCEPHALIC - Eye Exam Eye Exam: EOMI, Normal appearance, PERRL Pupil Exam: NORMAL ACCOMODATION, PERRL - ENT Exam ENT Exam: Mucous Membranes Moist, Normal Exam - Neck Exam Neck Exam: Full ROM, Normal Inspection. absent: Lymphadenopathy - Respiratory Exam Respiratory Exam: Decreased Breath Sounds - Cardiovascular Exam Cardiovascular Exam: REGULAR RHYTHM, +S1, +S2 - GI/Abdominal Exam GI & Abdominal Exam: Soft, Diminished Bowel Sounds - Rectal Exam Rectal Exam: Deferred Assessment and Plan (1) Contusion Status: Acute (2) Contusion of right elbow Status: Acute (3) Dehydration Status: Acute (4) Fall Status: Acute (5) Fracture of rib of right side Status: Acute (6) Frequent falls Status: Acute (7) Hyperkalemia Status: Acute (8) Multiple contusions Status: Acute (9) Near syncope Status: Acute (10) Syncope and collapse Status: Acute (11) UTI (urinary tract infection) Status: Acute (12) UTI (urinary tract infection), bacterial Status: Acute (13) Unsteady gait Status: Acute (14) Bilateral pubic rami fractures Status: Chronic (15) Sepsis Status: Suspected - Assessment and Plan (Free Text) Plan: Consult orthopedic Consult site damage prevention technician Consult neurologist CT head negative for hemorrhage CT chest negative for rib fracture Aspirin Lovenox Lopressor Percocet Crestor
[2017-03-27] MEDS: Rosuvastatin Calcium 2.5 mg Tab PO SCH (21:23)
[2017-03-28 07:22] LABS: BASO % 0.5 % (0.0-2.0); EOS # 0.1 K/uL (0.0-0.7); EOS % 1.1 % (0.0-4.0); HEMATOCRIT 35.8 % (34.0-47.0); LYMPH # 1.5 K/uL (1.0-4.3); MEAN CELL VOLUME 93.7 fL (81.0-99.0); MEAN CORPUSCULAR HEMOGLOBIN 31.5 pg (27.0-31.0); MEAN CORPUSCULAR HGB CONC 33.6 g/dL (33.0-37.0); MEAN PLATELET VOLUME 8.5 fL (7.2-11.7); MONO # 0.8 K/uL (0.0-0.8); NRBC % 0.1 % (0.0-2.0); RED CELL DISTRIBUTION WIDTH 12.4 % (11.5-14.5); WHITE BLOOD COUNT 10.1 K/uL (4.8-10.8)
[2017-03-28 07:49] LABS: CHLORIDE 96 mmol/L (98-107)
[2017-03-28 07:50] LABS: POTASSIUM 3.8 mmol/L (3.6-5.2); SODIUM 135 mmol/L (132-148)
[2017-03-28 07:51] LABS: GFR AFRICAN-AMERICAN > 60
[2017-03-28 07:52] LABS: ALB/GLOB RATIO 0.9 (1.0-2.1); ALKALINE PHOSPHATASE 90 U/L (38-126); ALT/SGPT 22 U/L (9-52); AST/SGOT 25 U/L (14-36); BILIRUBIN,TOTAL 0.7 mg/dL (0.2-1.3); BLOOD UREA NITROGEN 15 mg/dL (7-17); CALCIUM 9.3 mg/dl (8.6-10.4); CARBON DIOXIDE 31 mmol/L (22-30); GLUCOSE,RANDOM 139 mg/dL (65-105); TOTAL PROTEIN 7.5 g/dL (6.3-8.3)
--- NOTE | 2017-03-28 09:13 | CP.PCM.PN ---
Subjective - Date & Time of Evaluation Date of Evaluation: 03/28/17 Time of Evaluation: 11:20 - Subjective Subjective: clinically same Objective - Vital Signs/Intake and Output Vital Signs (last 24 hours): Temp Pulse Resp BP Pulse Ox 98.1 F 82 20 161/75 H 96 03/28/17 00:00 03/28/17 00:00 03/28/17 00:00 03/28/17 00:00 03/28/17 00:00 - Medications Medications: Current Medications Acetaminophen (Tylenol 325mg Tab) 650 mg PO Q6 PRN PRN Reason: Fever >100.4 F Aspirin (Aspirin Chewable) 81 mg PO DAILY [facility] Last Admin: 03/27/17 09:35 Dose: 81 mg Enoxaparin Sodium (Lovenox) 40 mg SC DAILY [facility] Last Admin: 03/27/17 09:35 Dose: 40 mg Ergocalciferol (Drisdol 50,000 Intl Units Cap) 1 cap PO QWK [facility] Last Admin: 03/26/17 12:39 Dose: 1 cap Insulin Aspart (Novolog) 0 unit SC QID [facility] PRN Reason: Protocol Last Admin: 03/27/17 21:29 Dose: Not Given Metoprolol Tartrate (Lopressor) 25 mg PO BID [facility] Last Admin: 03/27/17 18:50 Dose: 25 mg Oxycodone/Acetaminophen (Percocet 5/325 Mg Tab) 2 tab PO Q6H PRN PRN Reason: Pain, Mild (1-3) Stop: 03/28/17 20:20 Last Admin: 03/26/17 18:31 Dose: 2 tab Pantoprazole Sodium (Protonix Ec Tab) 40 mg PO DAILY [facility] Last Admin: 03/27/17 09:35 Dose: 40 mg Rosuvastatin Calcium (Crestor) 2.5 mg PO HS [facility] Last Admin: 03/27/17 21:23 Dose: 2.5 mg - Labs Labs: 03/28/17 07:00 03/28/17 07:00 PT 10.8 SECONDS (9.7-12.2) 03/25/17 15:28 INR 1.0 03/25/17 15:28 APTT 30 SECONDS (21-34) 03/25/17 15:28 - Constitutional Appears: Well - Head Exam Head Exam: ATRAUMATIC, NORMAL INSPECTION, NORMOCEPHALIC - Eye Exam Eye Exam: EOMI, Normal appearance, PERRL Pupil Exam: NORMAL ACCOMODATION, PERRL - ENT Exam ENT Exam: Mucous Membranes Moist, Normal Exam - Neck Exam Neck Exam: Full ROM, Normal Inspection. absent: Lymphadenopathy - Respiratory Exam Respiratory Exam: Decreased Breath Sounds - Cardiovascular Exam Cardiovascular Exam: REGULAR RHYTHM, +S1, +S2 - GI/Abdominal Exam GI & Abdominal Exam: Soft, Diminished Bowel Sounds - Rectal Exam Rectal Exam: Deferred Assessment and Plan (1) Contusion Status: Acute (2) Contusion of right elbow Status: Acute (3) Dehydration Status: Acute (4) Fall Status: Acute (5) Fracture of rib of right side Status: Acute (6) Frequent falls Status: Acute (7) Hyperkalemia Status: Acute (8) Multiple contusions Status: Acute (9) Near syncope Status: Acute (10) Syncope and collapse Status: Acute (11) UTI (urinary tract infection) Status: Acute (12) UTI (urinary tract infection), bacterial Status: Acute (13) Unsteady gait Status: Acute (14) Bilateral pubic rami fractures Status: Chronic (15) Sepsis Status: Suspected - Assessment and Plan (Free Text) Plan: Consult orthopedic Consult pulmonology Continue aspirin Lovenox Lopressor Percocet Protonix Patient refusing to go to [facility]
[2017-03-28] MEDS: Pantoprazole 40 mg EC Tab PO SCH (09:40)
[2017-03-28] MEDS: Enoxaparin 40 mg Syringe SC SCH (09:43)
[2017-03-28] MEDS: (Novolog) Insulin Aspart, Recombinant 100 u/ml 10 ml vial SC SCH ×4 (09:47→21:41)
--- NOTE | 2017-03-28 12:47 | CP.PCM.PN ---
Subjective - Date & Time of Evaluation Date of Evaluation: 03/28/17 Time of Evaluation: 09:20 - Subjective Subjective: Medicine Note- Dr. Johnson's service Patient was seen and examined at bedside. Patient reports that she still has significant pelvic pain. Discussed discharge planning with patient, she is refusing to go to [facility] at this time, she says she wants to go home. 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 No events overnight, per nursing. Objective - Vital Signs/Intake and Output Vital Signs (last 24 hours): Temp Pulse Resp BP Pulse Ox 98 F 82 18 160/89 H 100 03/28/17 08:00 03/28/17 08:00 03/28/17 08:00 03/28/17 09:40 03/28/17 08:00 - Medications Medications: Current Medications Acetaminophen (Tylenol 325mg Tab) 650 mg PO Q6 PRN PRN Reason: Fever >100.4 F Aspirin (Aspirin Chewable) 81 mg PO DAILY [facility] Last Admin: 03/28/17 09:40 Dose: 81 mg Enoxaparin Sodium (Lovenox) 40 mg SC DAILY [facility] Last Admin: 03/28/17 09:43 Dose: 40 mg Ergocalciferol (Drisdol 50,000 Intl Units Cap) 1 cap PO QWK [facility] Last Admin: 03/26/17 12:39 Dose: 1 cap Insulin Aspart (Novolog) 0 unit SC QID [facility] PRN Reason: Protocol Last Admin: 03/28/17 09:47 Dose: Not Given Metoprolol Tartrate (Lopressor) 25 mg PO BID [facility] Last Admin: 03/28/17 09:40 Dose: 25 mg Oxycodone/Acetaminophen (Percocet 5/325 Mg Tab) 2 tab PO Q6H PRN PRN Reason: Pain, Mild (1-3) Stop: 03/28/17 20:20 Last Admin: 03/26/17 18:31 Dose: 2 tab Pantoprazole Sodium (Protonix Ec Tab) 40 mg PO DAILY [facility] Last Admin: 03/28/17 09:40 Dose: 40 mg Rosuvastatin Calcium (Crestor) 2.5 mg PO HS [facility] Last Admin: 03/27/17 21:23 Dose: 2.5 mg - Labs Labs: 03/28/17 07:00 03/28/17 07:00 PT 10.8 SECONDS (9.7-12.2) 03/25/17 15:28 INR 1.0 03/25/17 15:28 APTT 30 SECONDS (21-34) 03/25/17 15:28 - Constitutional Appears: Non-toxic, No Acute Distress - Head Exam Head Exam: ATRAUMATIC, NORMAL INSPECTION, NORMOCEPHALIC - Eye Exam Pupil Exam: NORMAL ACCOMODATION, PERRL - ENT Exam ENT Exam: Mucous Membranes Moist - Respiratory Exam Respiratory Exam: Clear to Ausculation Bilateral, NORMAL BREATHING PATTERN. absent: Prolonged Expiratory Phase, Rales, Rhonchi, Wheezes - Cardiovascular Exam Cardiovascular Exam: REGULAR RHYTHM, +S1, +S2 - GI/Abdominal Exam GI & Abdominal Exam: Soft, Normal Bowel Sounds. absent: Tenderness, Diminished Bowel Sounds, Hernia, Hypoactive Bowel Sounds - Extremities Exam Extremities Exam: Normal Capillary Refill, Normal Inspection - Neurological Exam Neurological Exam: Alert, Awake, Oriented x3 - Psychiatric Exam Psychiatric exam: Normal Affect, Normal Mood - Skin Skin Exam: Dry, Intact, Normal Color, Warm Assessment and Plan - Assessment and Plan (Free Text) Assessment: Fall Pt has history of postprandial syncope and was admitted 12/2016. Pt found to have anterior and posterior pubic rami fracture then. CT head negative for acute etiologies per report. CT chest negative for rib fractures per report Hip xray showed possible subcapital fracture, as well as callus formation on multiple superior/inferior pelvic ring fractures per report. Pelvis CT- 03/27/17- mod- severe osteopenia. Multiple chronic fractures surrounding with large callus formation seen at the pubic bones bilaterally. Left sacral insufficiency fracture with left sclerosis also noted. (Please see full report) Ortho Dr. Mott consulted. Neuro Dr. Hernandez consulted.- Per Dr. Hernandez, fall was likely mechanical, secondary to deconditioning. Percocet PRN. Prophylactic measure Lovenox, Protonix, SCD PT/OT Management per Dr. Johnson Discharge planning- Patient refusing to go to [facility]. She says she wants to go home. Will discuss options with case management. Currently pending authorization to [facility]
--- NOTE | 2017-03-28 19:01 | CP.PCM.PN ---
<Bipin You - Last Filed: 03/28/17 18:58> Subjective - Date & Time of Evaluation Date of Evaluation: 03/28/17 Time of Evaluation: 18:58 - Subjective Subjective: Patient states she is feeling pretty good. She denies any pain. Specifically denies hip/back/leg/abd/groin pain. Denies pain in side. Denies pain with deep breathing. Denies CP/SOB. Denies numbness tingling. Objective - Vital Signs/Intake and Output Vital Signs (last 24 hours): Temp Pulse Resp BP Pulse Ox 98.1 F 78 20 145/81 100 03/28/17 16:00 03/28/17 16:00 03/28/17 16:00 03/28/17 18:04 03/28/17 16:00 Intake and Output: 03/28/17 03/28/17 06:59 18:59 Intake Total 240 Balance 240 - Medications Medications: Current Medications Acetaminophen (Tylenol 325mg Tab) 650 mg PO Q6 PRN PRN Reason: Fever >100.4 F Aspirin (Aspirin Chewable) 81 mg PO DAILY [facility] Last Admin: 03/28/17 09:40 Dose: 81 mg Enoxaparin Sodium (Lovenox) 40 mg SC DAILY [facility] Last Admin: 03/28/17 09:43 Dose: 40 mg Ergocalciferol (Drisdol 50,000 Intl Units Cap) 1 cap PO QWK [facility] Last Admin: 03/26/17 12:39 Dose: 1 cap Insulin Aspart (Novolog) 0 unit SC ACHS [facility] PRN Reason: Protocol Last Admin: 03/28/17 18:05 Dose: 2 unit Metoprolol Tartrate (Lopressor) 25 mg PO BID [facility] Last Admin: 03/28/17 18:04 Dose: 25 mg Oxycodone/Acetaminophen (Percocet 5/325 Mg Tab) 2 tab PO Q6H PRN PRN Reason: Pain, Mild (1-3) Stop: 03/28/17 20:20 Last Admin: 03/26/17 18:31 Dose: 2 tab Pantoprazole Sodium (Protonix Ec Tab) 40 mg PO DAILY [facility] Last Admin: 03/28/17 09:40 Dose: 40 mg Rosuvastatin Calcium (Crestor) 2.5 mg PO HS [facility] Last Admin: 03/27/17 21:23 Dose: 2.5 mg - Labs Labs: 03/28/17 07:00 03/28/17 07:00 PT 10.8 SECONDS (9.7-12.2) 03/25/17 15:28 INR 1.0 03/25/17 15:28 APTT 30 SECONDS (21-34) 03/25/17 15:28 - Constitutional Appears: No Acute Distress, Confused - Head Exam Head Exam: ATRAUMATIC, NORMAL INSPECTION - Neck Exam Neck Exam: Full ROM Additional comments: no pain - Respiratory Exam Respiratory Exam: NORMAL BREATHING PATTERN Additional comments: no pain with deep breaths TTP to right ribs - Cardiovascular Exam Additional comments: Calves soft NT neg hoans +DP pulses - Extremities Exam Additional comments: Full ROM B hips/knees without pain. NO pain with log roll, passive hip ROM bilaterally. no pain with pelvic compression/distraction. Sensation intact BLE - Neurological Exam Neurological Exam: Alert, Awake Neuro motor strength exam: Left Lower Extremity: 5 (DF/PF, knee/hip flex/ext/ toes flex/ext), Right Lower Extremity: 5 - Psychiatric Exam Psychiatric exam: Normal Affect, Normal Mood - Skin Skin Exam: Dry, Intact, Normal Color, Warm Assessment and Plan (1) Fracture of rib of right side Assessment & Plan: pain improved today cont IS OOB Status: Acute (2) Bilateral pubic rami fractures Assessment & Plan: PT/OT no acute issues VTE proph Status: Chronic (3) Frequent falls Assessment & Plan: rehab placement per PT rec Status: Acute <Cisco Mott - Last Filed: 06/21/17 14:47> Subjective - Subjective Subjective: Pt seen and examined, agree with PA Stock assessment and plan. Objective - Vital Signs/Intake and Output Vital Signs (last 24 hours): Temp Pulse Resp BP Pulse Ox 98.5 F 81 20 137/74 99 03/29/17 15:00 03/29/17 15:00 03/29/17 15:00 03/29/17 17:58 03/29/17 15:00 - Labs Labs: 03/28/17 07:00 03/28/17 07:00 PT 10.8 SECONDS (9.7-12.2) 03/25/17 15:28 INR 1.0 03/25/17 15:28 APTT 30 SECONDS (21-34) 03/25/17 15:28
[2017-03-28] MEDS: Rosuvastatin Calcium 2.5 mg Tab PO SCH (21:40)
[2017-03-29] MEDS: (Novolog) Insulin Aspart, Recombinant 100 u/ml 10 ml vial SC SCH ×3 (08:20→17:59)
--- NOTE | 2017-03-29 09:04 | CP.PCM.PN ---
Subjective - Date & Time of Evaluation Date of Evaluation: 03/29/17 Time of Evaluation: 08:00 - Subjective Subjective: Patient sleepy. Denies pain in ribs or in hips/legs/back/pelvis. Review of Systems - Review of Systems Systems not reviewed;Unavailable: Other (confused, drowsy) Objective - Vital Signs/Intake and Output Vital Signs (last 24 hours): Temp Pulse Resp BP Pulse Ox 98 F 73 19 110/68 100 03/29/17 08:36 03/29/17 08:36 03/29/17 08:36 03/29/17 08:36 03/29/17 08:36 Intake and Output: 03/29/17 03/29/17 06:59 18:59 Intake Total 450 Balance 450 - Medications Medications: Current Medications Acetaminophen (Tylenol 325mg Tab) 650 mg PO Q6 PRN PRN Reason: Fever >100.4 F Aspirin (Aspirin Chewable) 81 mg PO DAILY [facility] Last Admin: 03/28/17 09:40 Dose: 81 mg Enoxaparin Sodium (Lovenox) 40 mg SC DAILY [facility] Last Admin: 03/28/17 09:43 Dose: 40 mg Ergocalciferol (Drisdol 50,000 Intl Units Cap) 1 cap PO QWK [facility] Last Admin: 03/26/17 12:39 Dose: 1 cap Insulin Aspart (Novolog) 0 unit SC ACHS [facility] PRN Reason: Protocol Last Admin: 03/29/17 08:20 Dose: 2 unit Metoprolol Tartrate (Lopressor) 25 mg PO BID [facility] Last Admin: 03/28/17 18:04 Dose: 25 mg Pantoprazole Sodium (Protonix Ec Tab) 40 mg PO DAILY [facility] Last Admin: 03/28/17 09:40 Dose: 40 mg Rosuvastatin Calcium (Crestor) 2.5 mg PO HS [facility] Last Admin: 03/28/17 21:40 Dose: 2.5 mg - Labs Labs: 03/28/17 07:00 03/28/17 07:00 PT 10.8 SECONDS (9.7-12.2) 03/25/17 15:28 INR 1.0 03/25/17 15:28 APTT 30 SECONDS (21-34) 03/25/17 15:28 - Constitutional Appears: No Acute Distress - Head Exam Head Exam: ATRAUMATIC, NORMAL INSPECTION - Respiratory Exam Respiratory Exam: Chest Wall Tenderness (right side, no ecchymosis), NORMAL BREATHING PATTERN - Cardiovascular Exam Additional comments: +DP pulses BLE - Extremities Exam Additional comments: sensation intact calves soft NT neg homans no pain with full PROM of B hips/knees no pain with compression/distraction of pelvis - Neurological Exam Neurological Exam: Awake Neuro motor strength exam: Left Lower Extremity: 5, Right Lower Extremity: 5 (5/ 5 B ankles/knees/ hips) - Psychiatric Exam Psychiatric exam: Flat Affect - Skin Skin Exam: Dry, Intact, Normal Color, Warm Assessment and Plan (1) Fracture of rib of right side Assessment & Plan: encourage IS pain control Status: Acute (2) Bilateral pubic rami fractures Assessment & Plan: no current complaints of pain PT/OT recommend rehab placement VTE proph encourage OOB Status: Chronic (3) Frequent falls Assessment & Plan: PT/OT rehab d/w Dr. Dhaliwal, agrees with above Status: Acute
--- NOTE | 2017-03-29 10:12 | CP.PCM.PN ---
Subjective - Date & Time of Evaluation Date of Evaluation: 03/29/17 Time of Evaluation: 09:40 - Subjective Subjective: clinically same Objective - Vital Signs/Intake and Output Vital Signs (last 24 hours): Temp Pulse Resp BP Pulse Ox 98 F 73 19 110/68 100 03/29/17 08:36 03/29/17 08:36 03/29/17 08:36 03/29/17 08:36 03/29/17 08:36 Intake and Output: 03/29/17 03/29/17 06:59 18:59 Intake Total 450 Balance 450 - Medications Medications: Current Medications Acetaminophen (Tylenol 325mg Tab) 650 mg PO Q6 PRN PRN Reason: Fever >100.4 F Aspirin (Aspirin Chewable) 81 mg PO DAILY [facility] Last Admin: 03/28/17 09:40 Dose: 81 mg Enoxaparin Sodium (Lovenox) 40 mg SC DAILY [facility] Last Admin: 03/28/17 09:43 Dose: 40 mg Ergocalciferol (Drisdol 50,000 Intl Units Cap) 1 cap PO QWK [facility] Last Admin: 03/26/17 12:39 Dose: 1 cap Insulin Aspart (Novolog) 0 unit SC ACHS [facility] PRN Reason: Protocol Last Admin: 03/29/17 08:20 Dose: 2 unit Metoprolol Tartrate (Lopressor) 25 mg PO BID [facility] Last Admin: 03/28/17 18:04 Dose: 25 mg Pantoprazole Sodium (Protonix Ec Tab) 40 mg PO DAILY [facility] Last Admin: 03/28/17 09:40 Dose: 40 mg Rosuvastatin Calcium (Crestor) 2.5 mg PO HS [facility] Last Admin: 03/28/17 21:40 Dose: 2.5 mg - Labs Labs: 03/28/17 07:00 03/28/17 07:00 PT 10.8 SECONDS (9.7-12.2) 03/25/17 15:28 INR 1.0 03/25/17 15:28 APTT 30 SECONDS (21-34) 03/25/17 15:28 - Constitutional Appears: Well - Head Exam Head Exam: ATRAUMATIC, NORMAL INSPECTION, NORMOCEPHALIC - Eye Exam Eye Exam: EOMI, Normal appearance, PERRL Pupil Exam: NORMAL ACCOMODATION, PERRL - ENT Exam ENT Exam: Mucous Membranes Moist, Normal Exam - Neck Exam Neck Exam: Full ROM, Normal Inspection. absent: Lymphadenopathy - Respiratory Exam Respiratory Exam: Decreased Breath Sounds - Cardiovascular Exam Cardiovascular Exam: REGULAR RHYTHM, +S1, +S2 - GI/Abdominal Exam GI & Abdominal Exam: Soft, Diminished Bowel Sounds - Rectal Exam Rectal Exam: Deferred Assessment and Plan (1) Contusion Status: Acute (2) Contusion of right elbow Status: Acute (3) Dehydration Status: Acute (4) Fall Status: Acute (5) Fracture of rib of right side Status: Acute (6) Frequent falls Status: Acute (7) Hyperkalemia Status: Acute (8) Multiple contusions Status: Acute (9) Near syncope Status: Acute (10) Syncope and collapse Status: Acute (11) UTI (urinary tract infection) Status: Acute (12) UTI (urinary tract infection), bacterial Status: Acute (13) Unsteady gait Status: Acute (14) Bilateral pubic rami fractures Status: Chronic (15) Sepsis Status: Suspected - Assessment and Plan (Free Text) Plan: Patient refusing to go to [facility] She says she wants to go home Will discuss options with case management Currently pending authorization to [facility]
--- NOTE | 2017-03-29 10:45 | CP.PCM.PN ---
Subjective - Date & Time of Evaluation Date of Evaluation: 03/29/17 Time of Evaluation: 09:00 - Subjective Subjective: Medicine Note- Dr. Johnson's service Patient was seen and examined at bedside. Patient reports no acute complaints at the moment. Patient appeared very sleepy. No events overnight, per nursing. Objective - Vital Signs/Intake and Output Vital Signs (last 24 hours): Temp Pulse Resp BP Pulse Ox 98 F 73 19 110/68 100 03/29/17 08:36 03/29/17 08:36 03/29/17 08:36 03/29/17 08:36 03/29/17 08:36 Intake and Output: 03/29/17 03/29/17 06:59 18:59 Intake Total 450 Balance 450 - Medications Medications: Current Medications Acetaminophen (Tylenol 325mg Tab) 650 mg PO Q6 PRN PRN Reason: Fever >100.4 F Aspirin (Aspirin Chewable) 81 mg PO DAILY [facility] Last Admin: 03/28/17 09:40 Dose: 81 mg Enoxaparin Sodium (Lovenox) 40 mg SC DAILY [facility] Last Admin: 03/28/17 09:43 Dose: 40 mg Ergocalciferol (Drisdol 50,000 Intl Units Cap) 1 cap PO QWK [facility] Last Admin: 03/26/17 12:39 Dose: 1 cap Insulin Aspart (Novolog) 0 unit SC ACHS [facility] PRN Reason: Protocol Last Admin: 03/29/17 08:20 Dose: 2 unit Metoprolol Tartrate (Lopressor) 25 mg PO BID [facility] Last Admin: 03/28/17 18:04 Dose: 25 mg Pantoprazole Sodium (Protonix Ec Tab) 40 mg PO DAILY [facility] Last Admin: 03/28/17 09:40 Dose: 40 mg Rosuvastatin Calcium (Crestor) 2.5 mg PO HS [facility] Last Admin: 03/28/17 21:40 Dose: 2.5 mg - Labs Labs: 03/28/17 07:00 03/28/17 07:00 PT 10.8 SECONDS (9.7-12.2) 03/25/17 15:28 INR 1.0 03/25/17 15:28 APTT 30 SECONDS (21-34) 03/25/17 15:28 - Constitutional Appears: Non-toxic, No Acute Distress - Head Exam Head Exam: ATRAUMATIC, NORMAL INSPECTION, NORMOCEPHALIC - Eye Exam Pupil Exam: NORMAL ACCOMODATION, PERRL - ENT Exam ENT Exam: Mucous Membranes Moist - Respiratory Exam Respiratory Exam: Clear to Ausculation Bilateral, NORMAL BREATHING PATTERN. absent: Prolonged Expiratory Phase, Rales, Rhonchi, Wheezes - Cardiovascular Exam Cardiovascular Exam: REGULAR RHYTHM, +S1, +S2 - GI/Abdominal Exam GI & Abdominal Exam: Soft, Normal Bowel Sounds. absent: Tenderness, Diminished Bowel Sounds, Hernia, Hypoactive Bowel Sounds - Extremities Exam Extremities Exam: Normal Capillary Refill, Normal Inspection - Neurological Exam Neurological Exam: Alert, Awake, Oriented x3 - Psychiatric Exam Psychiatric exam: Normal Affect, Normal Mood - Skin Skin Exam: Dry, Intact, Normal Color, Warm Assessment and Plan - Assessment and Plan (Free Text) Assessment: Fall Pt has history of postprandial syncope and was admitted 12/2016. Pt found to have anterior and posterior pubic rami fracture then. CT head negative for acute etiologies per report. CT chest negative for rib fractures per report Hip xray showed possible subcapital fracture, as well as callus formation on multiple superior/inferior pelvic ring fractures per report. Pelvis CT- 03/27/17- mod- severe osteopenia. Multiple chronic fractures surrounding with large callus formation seen at the pubic bones bilaterally. Left sacral insufficiency fracture with left sclerosis also noted. (Please see full report) Ortho Dr. Mott consulted. Neuro Dr. Hernandez consulted.- Per Dr. Hernandez, fall was likely mechanical, secondary to deconditioning. Percocet PRN. Prophylactic measure Lovenox, Protonix, SCD PT/OT Management per Dr. Johnson Discharge planning- Patient refusing to go to [facility]. She says she wants to go home. Will discuss options with case management. Currently pending authorization to [facility]
[2017-03-29] MEDS: Enoxaparin 40 mg Syringe SC SCH (10:51)
[2017-03-29] MEDS: Pantoprazole 40 mg EC Tab PO SCH (10:51)
[2017-03-29 17:11] VITALS: BP 137/74; PULSE 81; RESP 20; TEMP 98.5; O2SAT 99
--- NOTE | 2017-04-30 09:38 | EEG ---
DATE: 03/27/2017 CHIEF COMPLAINT: Altered mental status and fall. MEDICATIONS: Reviewed via nurse's reconciliation sheet. INTERPRETATION: This is a 16-channel international recording. Background activity is composed of 6- 7 cycles per second. There is a small amount of beta activity 16-20 cycles per second seen in this r ecording. There is increased amount of theta activity 5-7 cycles per second seen in this recording. Drowsiness was characterized by mixed beta and theta activities. Sleep was characterized by vertex transient waves, sleep spindles and bilateral slowing. Photic stimulation showed no change in the tr acing. No paroxysmal activity noted in this recording. CONCLUSION: Abnormal electroencephalogram due to presence of mild diffuse slowing throughout the orly ctroencephalogram consistent with mild bilateral cerebral dysfunction. No evidence of any epileptifo rm activity. Please clinically correlate. Bhanu Hernandez MD cc: [id number] TT: 04/29/2017 16:22:58 Confirmation # [id number] Dictation # [id number] en
== END 2017-03-29 19:00 | disposition home or self-care (01) | DRG 206 ==
LOC: C.ER 11:24 → C.9E 16:49 → C.5T 17:25 → OBSVTOIN 03-27 07:57 → C.3T 03-28 11:09
PROVIDERS: ADMIT Internal Medicine Nephrology; ATTEND Internal Medicine Nephrology
DX: S22.31XA Fracture of one rib, right side, initial encounter for closed fracture (principal); S32.591A Other specified fracture of right pubis, initial encounter for closed fracture; F03.90 Unspecified dementia, unspecified severity, without behavioral disturbance, psychotic disturbance, mood disturbance, and anxiety; S32.592A Other specified fracture of left pubis, initial encounter for closed fracture; W19.XXXA Unspecified fall, initial encounter; Y92.002 Bathroom of unspecified non-institutional (private) residence as the place of occurrence of the external cause; R29.6 Repeated falls; I10 Essential (primary) hypertension; E78.5 Hyperlipidemia, unspecified; M85.88 Other specified disorders of bone density and structure, other site

== ENCOUNTER 2017-10-18 15:27 | Emergency (ER) | payer MEDICARE ==
[2017-10-18 15:28] VITALS: BMI 23.2
[2017-10-18 15:41] VITALS: TEMP 96.4
[2017-10-18 15:46] VITALS: O2SAT 98
--- NOTE | 2017-10-18 16:13 | C.PDOC ---
History Of Present Illness 87 y/o female brought to ED by daughter for high blood pressure. Pt states that a different visiting nurse visited her today who felt that patient's BP is high , and was advised to report to ED for further evaluation. Pt reports generalized weakness, and mild headache. Denies chest pain, shortness of breath , or any other complaints. Chief Complaint (Nursing): High Blood Pressure History Per: Patient History/Exam Limitations: no limitations Onset/Duration Of Symptoms: Days Current Symptoms Are (Timing): Still Present Associated Symptoms: Headache. denies: Chest Pain, Dyspnea, Dizziness, Blurred Vision, Focal Weakness Recent travel outside of the [place]: No Additional History Per: Family Past Medical History Reviewed: Historical Data, Nursing Documentation, Vital Signs Vital Signs: Last Vital Signs Temp 96.4 F L 10/18/17 15:36 Pulse 64 10/18/17 17:01 Resp 14 10/18/17 17:01 BP 145/85 10/18/17 16:21 Pulse Ox 98 10/18/17 17:01 - Medical History PMH: Dementia, HTN, Hypercholesterolemia, Hyperlipidemia Denies: Chronic Kidney Disease Surgical History: Appendectomy, Tonsillectomy Family History: States: Unknown Family Hx - Social History Hx Alcohol Use: No Hx Substance Use: No - Immunization History Hx Tetanus Toxoid Vaccination: No Hx Influenza Vaccination: No Hx Pneumococcal Vaccination: No Review Of Systems Constitutional: Positive for: Weakness. Negative for: Fever, Chills Cardiovascular: Negative for: Chest Pain, Palpitations Respiratory: Negative for: Cough, Shortness of Breath Neurological: Positive for: Headache. Negative for: Weakness, Numbness, Dizziness Physical Exam - Physical Exam Appears: Non-toxic, No Acute Distress Skin: Normal Color, Warm, Dry Head: Atraumatic, Normacephalic Eye(s): bilateral: Normal Inspection Oral Mucosa: Moist Cardiovascular: Rhythm Regular, No Murmur Respiratory: Normal Breath Sounds, No Rales, No Rhonchi, No Wheezing Gastrointestinal/Abdominal: Soft, No Tenderness Extremity: Normal ROM Neurological/Psych: Oriented x3, Normal Speech ED Course And Treatment - Laboratory Results Result Diagrams: 10/18/17 16:37 10/18/17 16:37 O2 Sat by Pulse Oximetry: 98 Pulse Ox Interpretation: Normal Disposition Doctor Will See Patient In The: Office Counseled Patient/Family Regarding: Studies Performed, Diagnosis, Need For Followup - Disposition Disposition: HOME/ ROUTINE Disposition Time: 17:15 Condition: STABLE Instructions: Hypertension (ED) Forms: [employer] (Kyrgyz) - Clinical Impression Clinical Impression: Hypertension - Scribe Statement The provider has reviewed the documentation as recorded by the Scribe Kayleigh Johnson All medical record entries made by the Scribe were at my direction and personally dictated by me. I have reviewed the chart and agree that the record accurately reflects my personal performance of the history, physical exam, medical decision making, and the department course for this patient. I have also personally directed, reviewed, and agree with the discharge instructions and disposition.
[2017-10-18 16:48] LABS: BASO % 0.4 % (0.0-2.0); EOS # 0.1 K/uL (0.0-0.7); EOS % 1.5 % (0.0-4.0); HEMATOCRIT 40.3 % (34.0-47.0); LYMPH # 1.2 K/uL (1.0-4.3); LYMPH % 17.7 % (20.0-40.0); MEAN CORPUSCULAR HEMOGLOBIN 31.4 pg (27.0-31.0); MEAN CORPUSCULAR HGB CONC 33.1 g/dL (33.0-37.0); MEAN PLATELET VOLUME 8.6 fL (7.2-11.7); MONO # 0.5 K/uL (0.0-0.8); MONO % 6.8 % (0.0-10.0); NRBC % 0.1 % (0.0-2.0); RED CELL DISTRIBUTION WIDTH 12.4 % (11.5-14.5)
[2017-10-18 17:03] VITALS: PULSE 64; RESP 14
[2017-10-18 17:08] LABS: ALKALINE PHOSPHATASE 90 U/L (38-126); ALT/SGPT 42 U/L (9-52); AST/SGOT 33 U/L (14-36); BILIRUBIN,TOTAL 0.6 mg/dL (0.2-1.3); BLOOD UREA NITROGEN 15 mg/dL (7-17); CALCIUM 9.5 mg/dl (8.6-10.4); CARBON DIOXIDE 28 mmol/L (22-30); CHLORIDE 100 mmol/L (98-107); GFR AFRICAN-AMERICAN > 60; GLUCOSE,RANDOM 267 mg/dL (65-105); POTASSIUM 4.8 mmol/L (3.6-5.2); SODIUM 134 mmol/L (132-148)
[2017-10-18 17:14] LABS: ALB/GLOB RATIO 0.9 (1.0-2.1)
[2017-10-18 17:22] VITALS: BP 153/74
== END 2017-10-18 17:55 | disposition home or self-care (01) ==
LOC: C.ER 15:27
DX: I10 Essential (primary) hypertension (principal); E78.00 Pure hypercholesterolemia, unspecified